=== PATIENT | female | born 1995 | race African-American/Black ===

== ENCOUNTER 2016-07-05 20:08 | Emergency (ER) | payer MEDICAID ==
[2016-07-05] MEDS ORDERED: ONDANSETRON 4 MG VIAL ONE (21:42)
[2016-07-05] MEDS ORDERED: KETOROLAC 30 MG/ML VIAL ONE (21:42)
== END 2016-07-05 23:25 | disposition home or self-care (01) ==
LOC: ER 20:08
CPT/HCPCS: 36415; 74022; 80053; 81001; 83690; 84703; 85025; 87088; 87491; 87591; 87800; 96374; 96375